=== PATIENT | female | born 1955 | race Caucasian/White ===

== ENCOUNTER 2022-05-18 13:27 | Outpatient (RCR) | payer MEDICARE, SELFPAY | END 2022-09-21 09:41 | disposition home or self-care (01) | LOC: HO.WCC 13:27 | PROVIDERS: PCP Internal Medicine; Visit Provider Physician Assistant | DX: E11.621 Type 2 diabetes mellitus with foot ulcer (principal); I87.331 Chronic venous hypertension (idiopathic) with ulcer and inflammation of right lower extremity; E11.51 Type 2 diabetes mellitus with diabetic peripheral angiopathy without gangrene; L89.613 Pressure ulcer of right heel, stage 3; E11.622 Type 2 diabetes mellitus with other skin ulcer; L97.212 Non-pressure chronic ulcer of right calf with fat layer exposed; E11.40 Type 2 diabetes mellitus with diabetic neuropathy, unspecified; I89.0 Lymphedema, not elsewhere classified; Z89.512 Acquired absence of left leg below knee | CPT/HCPCS: 11042; 11045; 15271; 15273; Q4187 ==

== ENCOUNTER 2022-07-05 10:51 | Outpatient (REF) | payer MEDICARE, SELFPAY ==
--- NOTE | ~2022-07-05 | US_ITS ---
EXAMINATION: Noninvasive assessment of the right lower extremities with ARTERIAL DUPLEX and ANKLE BRACHIAL INDICES (ABIs). CLINICAL INFORMATION: Peripheral vascular disease. History of left lower extremity amputation TECHNIQUE: Duplex Doppler techniques with waveform analysis and measurement of velocities in the right common femoral, profunda femoris, superficial femoral, popliteal and tibial arteries were performed. Additionally, ankle pulse volume recordings, ankle pressure measurements and ankle brachial indices were obtained of the lower extremity arterial system right. The study was performed only at rest. COMPARISON: None FINDINGS: DIRECT DUPLEX DOPPLER FINDINGS: RIGHT LEG: Common femoral artery: 189 cm/s, phasicity: Biphasic Profunda femoris artery: 89.6 cm/s, phasicity: Biphasic Superficial femoral artery (proximal): 136 cm/s, phasicity: Triphasic Superficial femoral artery (mid): 175 cm/s, phasicity: Biphasic Superficial femoral artery (distal): 151 cm/s, phasicity: Biphasic Popliteal artery: 157 cm/s, phasicity: Biphasic Posterior tibial artery, proximal: 78.2 cm/s, phasicity: Biphasic Peroneal artery: Not visualized Mid and distal calf were not evaluated due to overlying bandages ANKLE-BRACHIAL INDEX: Right: 1.12? ANKLE PRESSURES: Right: PT 1.12, DP 1.1 ANKLE PVR WAVEFORMS: Right: Normal US/US SHERITA complete IMPRESSION: Normal right lower extremity ankle brachial index. Visualized arterial vessels are patent without significant arterial occlusion however the mid and distal calf vessels are not evaluated due to overlying bandages. The peroneal artery was also not well visualized. Cannot exclude distal small vessel disease
--- NOTE | ~2022-07-05 | US_ITS ---
EXAMINATION: Noninvasive assessment of the right lower extremities with ARTERIAL DUPLEX and ANKLE BRACHIAL INDICES (ABIs). CLINICAL INFORMATION: Peripheral vascular disease. History of left lower extremity amputation TECHNIQUE: Duplex Doppler techniques with waveform analysis and measurement of velocities in the right common femoral, profunda femoris, superficial femoral, popliteal and tibial arteries were performed. Additionally, ankle pulse volume recordings, ankle pressure measurements and ankle brachial indices were obtained of the lower extremity arterial system right. The study was performed only at rest. COMPARISON: None FINDINGS: DIRECT DUPLEX DOPPLER FINDINGS: RIGHT LEG: Common femoral artery: 189 cm/s, phasicity: Biphasic Profunda femoris artery: 89.6 cm/s, phasicity: Biphasic Superficial femoral artery (proximal): 136 cm/s, phasicity: Triphasic Superficial femoral artery (mid): 175 cm/s, phasicity: Biphasic Superficial femoral artery (distal): 151 cm/s, phasicity: Biphasic Popliteal artery: 157 cm/s, phasicity: Biphasic Posterior tibial artery, proximal: 78.2 cm/s, phasicity: Biphasic Peroneal artery: Not visualized Mid and distal calf were not evaluated due to overlying bandages ANKLE-BRACHIAL INDEX: Right: 1.12? ANKLE PRESSURES: Right: PT 1.12, DP 1.1 ANKLE PVR WAVEFORMS: Right: Normal US/US arterial duplex LE RT IMPRESSION: Normal right lower extremity ankle brachial index. Visualized arterial vessels are patent without significant arterial occlusion however the mid and distal calf vessels are not evaluated due to overlying bandages. The peroneal artery was also not well visualized. Cannot exclude distal small vessel disease
== END 2022-07-05 10:52 | disposition home or self-care (01) ==
LOC: HO.US 10:51
PROVIDERS: PCP Internal Medicine; Visit Provider Physician Assistant
DX: I73.9 Peripheral vascular disease, unspecified (principal)
CPT/HCPCS: 93923; 93926